=== PATIENT | female | born 1960 | race Caucasian/White ===

== ENCOUNTER 2023-01-11 17:33 | Emergency (ER) | payer MEDICARE, MEDICAID ==
[~2023-01-11] VITALS: Ht 160 cm; Wt 53.0 kg
[2023-01-11 17:38] VITALS: PULSE 84; RESP 18
[2023-01-11 17:41] VITALS: BP 165/93; TEMP 98.9; O2SAT 100
[2023-01-11 18:09] LABS: BASOPHILS % 0.5 % (0.0-2.0); EOSINOPHILS % 0.6 % (0.0-5.0); HEMATOCRIT. 41.3 % (36.0-48.0); HEMOGLOBIN. 13.9 g/dL (12.0-16.0); LYMPHOCYTES % 33.7 % (20.0-50.0); MEAN CORPUSCULAR HEMOGLOBIN 30.3 pg (28.0-32.0); MEAN CORPUSCULAR HGB CONC 33.7 g/dL (31.0-37.0); MEAN CORPUSCULAR VOLUME 89.8 fL (81.0-99.0); MEAN PLATELET VOLUME 8.1 fl (7.4-10.4); NEUTROPHILS % 57.2 % (40.0-76.0); PLATELET 245 x1000/uL (130-400); RED CELL DISTRIBUTION WIDTH 13.2 % (11.6-14.6); WHITE BLOOD COUNT 8.9 x1000/uL (4.5-11.0)
[2023-01-11 18:22] LABS: CHLORIDE 102 mEq/L (98-107); INDEX HEMOLYSI 1 (1-3); INDEX ICTERIC 1 (1-4); INDEX LIPEMIC 1 (1-3); POTASSIUM 4.1 mEq/L (3.5-5.1); SODIUM 136 mEq/L (136-145)
[2023-01-11 18:31] LABS: ALANINE AMINOTRANSFERASE 22 IU/L (13-61); ALBUMIN 4.5 g/dL (3.4-5.0); ASPARTATE AMINOTRANSFERASE 19 IU/L (15-37); CALCIUM 8.9 mg/dL (8.5-10.1); CARBON DIOXIDE 28 mEq/L (21-32); CREATININE 0.8 mg/dL (0.6-1.3); GLUCOSE 100 mg/dL (70-105); PROTEIN TOTAL 8.2 g/dL (6.0-8.3); UREA NITROGEN BLOOD 26 mg/dL (7-21)
[2023-01-11] MEDS ORDERED: ACETAMINOPHEN 325MG TABLET PO ONE (19:00)
[2023-01-11] MEDS ORDERED: PANTOPRAZOLE 40MG DR TABLET PO ONE (19:00)
[2023-01-11] MEDS ORDERED: ONDANSETRON 4MG ODT PO ONE (19:00)
[2023-01-11] MEDS ORDERED: SODIUM CHLORIDE 0.9% 1,000 ML IV ONE (19:45)
[2023-01-11] MEDS ORDERED: PROT40 MT (22:32)
[2023-01-11] MEDS ORDERED: ONDA4TAB50 MT (22:32)
[2023-01-11] MEDS ORDERED: TOPUD MT (22:32)
[2023-01-11] MEDS ORDERED: ACETAMINOPHEN 325MG TABLET PO NR (23:00)
[2023-01-11] MEDS ORDERED: PANTOPRAZOLE 40MG DR TABLET PO NR (23:00)
[2023-01-11] MEDS ORDERED: ONDANSETRON 4MG ODT PO NR (23:00)
== END 2023-01-12 00:28 | disposition home or self-care (01) ==
LOC: ER 17:33
DX: K29.00 Acute gastritis without bleeding (principal); E11.9 Type 2 diabetes mellitus without complications; E78.00 Pure hypercholesterolemia, unspecified; Z98.890 Other specified postprocedural states; Z88.0 Allergy status to penicillin; Z88.5 Allergy status to narcotic agent; Z88.8 Allergy status to other drugs, medicaments and biological substances
CPT/HCPCS: 99284; 74176; 80053; 83605; 83690; 85025; 36415; Q0162; J7030